=== PATIENT | female | born 1990 | race Two or more races ===

== ENCOUNTER → 2017-06-23 | Emergency (ER) | payer MEDICAID ==
[~2017-06-23] VITALS: Ht 162.6 cm; Wt 58.0 kg
[~2017-06-23] MED LIST: AMOX-419 PO; HYDR30CR79 TOP; MAGN296S50 PO; POLY119P2 PO
[2017-06-23 08:38] VITALS: BP 95/64
== END | disposition home or self-care (01) ==
LOC: ER 08:03
DX: J32.9 Chronic sinusitis, unspecified (principal)
CPT/HCPCS: 99283

== ENCOUNTER 2017-07-06 18:13 | Emergency (ER) | payer MEDICAID ==
[~2017-07-06] VITALS: Ht 162.6 cm; Wt 56.9 kg
[~2017-07-06 18:13] MED LIST changes: -AMOX-419 PO
[2017-07-06 18:20] VITALS: BP 115/72
== END 2017-07-06 18:43 | disposition left against medical advice (07) ==
LOC: ER 18:13
DX: R51 Headache (principal); Z53.21 Procedure and treatment not carried out due to patient leaving prior to being seen by health care provider